=== PATIENT | female | born 1990 | race Caucasian/White ===

== ENCOUNTER 2024-06-03 15:04 | Outpatient (CLI) | payer MEDICAID | END 2024-06-03 23:59 | disposition home or self-care (01) | LOC: CARD DIAG 15:04 | PROVIDERS: ATTEND Family Medicine | DX: I08.8 Other rheumatic multiple valve diseases (principal); R00.2 Palpitations | CPT/HCPCS: 93306 ==

== ENCOUNTER 2024-06-11 06:55 | Outpatient (CLI) | payer MEDICAID ==
[2024-06-11] VITALS (21 sets, daily range): BP systolic 133–159; BP diastolic 62–103; PULSE 81–112
== END 2024-06-11 23:59 | disposition home or self-care (01) ==
LOC: CARD DIAG 06:55
PROVIDERS: ATTEND Family Medicine
DX: R42 Dizziness and giddiness (principal); R00.0 Tachycardia, unspecified; R00.2 Palpitations
CPT/HCPCS: 93660